=== PATIENT | male | born 1990 ===

== ENCOUNTER 2019-07-17 03:42 | Emergency (ER) | payer OTHER ==
[~2019-07-17] VITALS: Ht 182 cm; Wt 96.0 kg
[2019-07-17 03:54] VITALS: BP 124/64; TEMP 97.6
[2019-07-17] MEDS ORDERED: AMOXICILLIN 50500 MG PO (04:29)
[2019-07-17] MEDS ORDERED: NORCO 325 MG-51 TAB PO (04:29)
[2019-07-17 05:06] VITALS: PULSE 56
== END 2019-07-17 05:06 | disposition home or self-care (01) ==
LOC: COL.ER 03:42
DX: K02.9 Dental caries, unspecified (principal)
CPT/HCPCS: J1170